=== PATIENT | female | born 1975 | race Caucasian/White ===

== ENCOUNTER → 2017-01-28 | Outpatient (CLI) | payer BC, OTHER ==
--- NOTE | 2017-01-29 06:04 | PAP/PSG TECHNICIAN REPORT ---
[facility] Furniture Mover Driver Polysomnogram Report Study name: None Report date: 01/29/2017 Study date: 01/28/2017 Referring Physician: Lily Arora PA-C, PA-C Name: GALINA PIMENTEL Interpreting Physician: Randy Mcmullen M.D. Date of : 1975 Furniture Mover Driver: Isa Murray [facility]. Sex: Female Age: 41 StudyType: PSG PAP Weight: 102 lbs Height: 41 years, Height 5' 1" Neck Circum:12.25mg BMI: 19.27 Medications: Adderall 5mg, Amino Acids, Celexa 20mg, Glutamine, Multivitamins, Probiotics, Vyvanse 40mg, Wellbutrin Sr 150 mg Patient History Study started on room air with 4cwp cpap in room #6. 41 yr old female here tonight for a new titration study. She had a HST two nights in a row with a cumulative MARLO of 15.1. Her nec circ=12.25 Parameters Monitored NPSG: E1-M2, E2-M1, Fp1-M2, Fp2-M1, F3-M2, F4-M2, F4-M1, C3-M2, C4-M2, C4-M1, O1-M2, O2-M2, O2-M1, T3-M2, T4-M1, P3-M2, P4-M1, CHIN1, CHIN2, HR, EKG, Legs, PFLOW, SNOR, FLOW, CFLOW, Tidal Volume, THOR, ABDO, SpO2, PLTH, CPRESS, ETCO2 Wave, ETCO2, pH Sleep Architecture Sleep Stages Time at Lights Off 10:23:55 PM STAGES Time (min.) TST (%) Time at Lights On 5:22:55 AM Wake 47.5 -- Total Recording Time (TRT) 419.00 min. N1 23.5 6 Total Sleep Period (TSP) 399.0 min. N2 220.5 59 Total Sleep Time (TST) 371.5min. N3 63.0 17 Awake Time 47.5 min. REM 64.5 17 Wake after Sleep Onset 27.5 min. Sleep Efficiency (SE) 89 % Sleep Onset Latency (RONIT) 20.0 min. Number of Stage 1 Shifts None Awakenings 31 Stage Changes 121 Number of REM periods 8 REM 64.5 17 REM Latency 122.5 min. NREM 307.0 83 Body Position Analysis Supine Right Left Side Prone Vertical Total Sleep Time (min.) 240.3 30.9 141.3 172.25 0.0 0.0 Total Sleep Time (%) 54% 8% 38% 46 0% N/A% Total Sleep Time REM (min.) 30.5 0.0 34.0 None 0.0 0.0 Total Sleep Time NREM (min.) 168.8 30.9 107.3 None 0.0 0.0 Intermittent Wake (min.) 41.0 0.5 6.0 None 0.0 0.0 Total Sleep Period (%) 55% None None None None None Arousals Myoclonus (PLM) * Events Count Index Events Count Index Spontaneous 24 4 Events Awake (PLMW) 108 136.4 Respiratory 4 0.6 Events Asleep w/ Arousal (PLMA) 32 5.2 PLM 32 5 Events Asleep w/o Arousal (PLMS) 172 27.8 Snoring 7 1 Total Asleep 204 32.9 Total 67 11 Total 312 45 Respiratory Analysis * CA OA MA CH H RERA Total Count 1 5 0 0 0 1 6 Index 0.2 0.8 0.0 0 0.0 0 1.1 Mean Duration 25.9 21.7 0.0 0.00 0.0 37.0 24.5 Longest Duration 25.9 33.0 0.0 0.00 0.0 37.0 37.0 Respiratory Event Summary Total Supine ~Supine Right Left Prone REM NREM Apneas Count 6 3 3 0 3 N/A 2 4 Index 1.0 1 1 0.0 1.3 N/A 2 1 Hypopneas (4% Desat) Count 0 0 0 0 0 N/A 0 0 Index 0.0 0.0 0 0.0 0.0 N/A 0.0 0.0 Apneas & All Hypopneas Count 6 3 3 0 3 N/A 2 4 Index 1.0 1 1 0 1 N/A 1.9 0.8 Respiratory Events (Buckle Inspector+All Hyp+RERA) Count 6 3 4 0 4 N/A 2 4 Index 1.1 1 1 0.0 1.7 N/A 1.9 1.0 Respiratory Related Arousal Count 4 3 3 0 3 N/A 1 3 Index 0.6 0 1 0 1 N/A 1 1 Snoring Analysis Supine Right Left Prone REM NREM Total Snore duration 7.6 min Snores count 158 1 59 N/A 41 177 218 Snore mean duration 2.1 Sec Snores index 48 2 25 N/A 38.1 34.6 35.2 TST with snoring (%) 2.1% Desaturation Event Summary: Minimum %SpO2 Event Count Mean/Min/Max Duration(sec.) Desaturation Index % Time In Bed > 90 7 22.0 / 7.0 / 46.8 1.0 100.0 86 - 90 0 N/A 0.0 0.0 81 - 85 0 N/A 0.0 0.0 76 - 80 0 N/A 0.0 0.0 71 - 75 0 N/A 0.0 0.0 66 - 70 0 N/A 0.0 0.0 61 - 65 0 N/A 0.0 0.0 56 - 60 0 N/A 0.0 0.0 51 - 55 0 N/A 0.0 0.0 < 50 0 N/A 0.0 0.0 Total REM NREM Awake <50% 0.0 min. 0.0 min. 0.0 min. 0.0 min. 51 - 60% 0.0 min. 0.0 min. 0.0 min. 0.0 min. 61 - 70% 0.0 min. 0.0 min. 0.0 min. 0.0 min. 71 - 80% 0.0 min. 0.0 min. 0.0 min. 0.0 min. 81 - 90% 0.1 min. 0.0 min. 0.1 min. 0.0 min. 91 - 100% 418.4 min. 64.5 min. 306.8 min. 47.1 min. Average 94 95 94 94 Minimum SpO2 90 91 90 91 Desaturation Event Index 1.0 0.9 0.6 3.8 # Desat. Events below 89% N/A N/A N/A N/A Time(%) with Saturation below 89% 0.0 0.0 0.0 0.0 Time(min.) with Saturation below 89% 0.0 0.0 0.0 0.0 Time (mins) REM (mins) NREM (mins) % of TST SpO2 Below 90% N/A N/A NN/A 0.0 SpO2 Below 88% 0 0 0 0 Heart Rate Analysis Min (bpm) Max (bpm) Average (bpm) Awake 59 94 73 NREM 56 98 67 REM 60 82 68 Overall 56 98 67 Supplemental O2 Values Minimum O2 level: None Value Start Time End Time Furniture Mover Driver Comments Ms. Pimentel slept in the right, left and supine positions. No cardiac arrhythmia noted. PLM's noted. Bruxism noted, see print out. CPAP was initiated at +4 CMH2O and up-titrated to an optimal level of +5 CMH2O, which nearly eliminated all respiratory events and snoring. A small Simplus full face mask by Km was used during titration. She did not use the restroom during the night. She stated that she slept better than when at home. The final report will be interpreted and signed by a sleep physician. The completed physician report will then be placed in the patient medical record. Therapy Event: Therapy (cm H20) 4 5 Total Time at Pressure (min.) 215.6 203.2 TST at Pressure (min.) 180.8 190.7 # Periods 1 1 Sleep Onset (min.) 19.8 0.0 REM Onset (min.) 142.3 28.2 Sleep Efficiency % 83 93 Wakefulness (%) 16.2 6.2 Wakefulness (min.) 34.8 12.5 NREM 1 (%) 4.4 6.9 NREM 1 (min.) 9.5 14.0 NREM 2 (%) 47.0 58.7 NREM 2 (min.) 101.3 119.2 NREM 3 (%) 24.6 4.9 NREM 3 (min.) 53.0 10.0 REM (%) 7.9 23.4 REM (min.) 17.0 47.5 # Arousals 31 36 Arousal Index 10.3 11.3 # Snore 35 183 Snore Index 11.6 57.6 AHI 1.0 0.9 AHI Supine 0.0 1.2 AHI Non-Supine 1.4 0.0 NREM AHI 1.1 0.4 REM AHI 0.0 2.5 RDI 1.3 0.9 # Obstructive 3 2 # Central Ap 0 1 # Mixed 0 0 # Hypopneas 0 0 RERAS 1 0 Total Respiratory Events 4 3 Time Below SpO2 89.00% (min.) 0.0 0.0 Mean NREM SpO2 (%) 93 94 Mean REM SpO2 (%) 94 95 Mean Sleep SpO2 (%) 93 95 Min NREM SpO2 (%) 90 91 Min REM SpO2 (%) 92 91 Position Supine (min.) 50.4 148.9 Position Non-supine (min.) 130.5 41.8 LM Index Sleep 30.2 35.6 LM Index NREM 29.3 29.3 LM Index REM 38.8 54.3 Mean Heart Rate (bpm) 71 64 Min Heart Rate (bpm) 63 56
--- NOTE | 2017-01-30 16:39 | POLYSOMNOGRAPH REPORT ---
CLINICAL DATA: A 41-year-old female with BMI of 19.27 referred by Lily Arora for a CPAP titration study. She had 2 nights of home sleep study which showed an RDI of 15.1. SLEEP ARCHITECTURE: Total sleep period was 399 minutes. Total sleep time was 371.5 minutes divided between 307 minutes of non-REM sleep and 64.5 minutes of REM sleep. Sleep onset latency was 20 minutes. REM latency was 122.5 minutes. Sleep efficiency was 89%. Wake after sleep onset was 27.5 minutes. Sleep consisted of stage N1 6%, N2 59%, N3 17%, and REM 17%. AROUSAL DATA: Sixty seven arousals were recorded for an index of 11 per hour. Thirty two were due to PLMs. PLM DATA: Moderately elevated limb movements during sleep were noted. There were 204 limb movements during sleep noted for an index of 32.9 per hour with arousal index of 5.2 per hour. RESPIRATORY DATA: The AHI was 1. There was 1 central and 5 obstructive apneic episodes. The longest duration of apnea was 33 seconds. OXIMETRY DATA: No hypoxemia was seen. Oxygen gisele was 90%. Mean saturation was 94%. EKG: Heart rates ranged from 56-98 beats per minute. No arrhythmias were noted. 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 She used a small Simplus face mask by Km. She was started on CPAP and titrated up to 5 cm water pressure. At her final pressure setting, the patient slept for 190.7 minutes with an AHI of 0.9. IMPRESSION: Mild to moderate obstructive sleep apnea corrected with CPAP at 5 cm water pressure, small Simplus full face mask by Km. RECOMMENDATIONS: The patient should be started on the above noted treatment regimen and seen back in followup within 90 days to document efficacy and compliance. [facility]
== END | disposition home or self-care (01) ==
LOC: C.NEUR 21:00
PROVIDERS: ATTEND Internal Medicine Pulmonary Disease
DX: G47.33 Obstructive sleep apnea (adult) (pediatric) (principal)